=== PATIENT | male | born 1985 | race Caucasian/White ===

== ENCOUNTER 2025-01-21 16:28 | Emergency (ER) | payer OTHER, SELFPAY ==
--- OUTSIDE RECORDS SUMMARY | 2024-05-25 03:00 | XMS_ITS | Encounter Summary ---
Author Name [facility] ([facility] Organization [facility] Address [address] [place] [id number] Care Team Providers Care Applied Psychology Chair Name Role Phone THELMAJALEESA GREGORY Primary Care Provider Unavailgayle e Insurance Providers: All historical and current Section Date Range: From patient's date of to the date document was created. This section includes the names of all active insurance providers for the patient. Insurance Provider Type of Coverage Plan Name Start of Policy Coverage End of Policy Coverage Group Number Member ID Insurance Provider's Telephone Number Policy Craig's Name Patient's Relationship to Policy Craig [employer] November 01, 2021 [id number] [place] TURNER PATIENT [employer] RX PRESCRIPT ION RX PLAN November 01, 2021 [id number] [phone] MASON TURNER PATIENT Selected Encounter This section includes the information on record at MD for the Encounter. Date/Time Encounter Type Encounter Description Reason Provider Source May 25, 2024 08:00 AM PT EDUCATION NOC GROUP SLEEP MEDICINE ICD-10-CM G47.33 Obstructive sleep apnea (adult) (pediatric) ALISIA CHAVIS Tanvir Encounter Template Text not used by MD Assessments - Encounter Diagnoses This section includes the primary and secondary diagnoses documented for the Encounter. Date/Time Primary/Secondary Diagnosis Diagnosis Name Provider Source Jun 14, 2024 01:28 PM PRIMARY Obstructive sleep apnea (adult) (pediatric) ALISIA CHAVIS [facility] Plan of Treatment: Future Appointments (+ 6 months) and Future Tests (+/- 45 days) The Plan of Treatment section includes future care activities for the patient from all [place] treatmentfacilities. This section includes future appointments and future orders which are active, pending or scheduled. Future Appointments This section includes appointments that were scheduled to occur 6 months from the date of the Encounter, up to a maximum of 20 appointments. The data comes from all MD treatment facilities. Appointment Date/Time Appointment Type Appointme nt Facility Name Jun 18, 2024 11:00 AM AMBULATORY - MEDICINE [facility] Aug 14, 2024 06:30 AM AMBULATORY - NONE [facility] Lab Results: +/- 30 days of the encounter This section includes the Chemistry and Hematology Lab Results on record with MD for the patient. Radiology Reports and Pathology Reports are provided separately, in subsequent sections. Lab Results This section contains the Chemistry/Hematology Results that were resulted 30 days before or 30 daysafter the date of the Encounter. Date/Time Source Result Type Result - Unit Interpretation Reference Range Specimen Type Comment May 18, 2024 07:58 AM [facility] TSH W/REFLEX TO FREE T4 PLASMA Specimen Type: PLASMA No comment entered. Ordering Provider: JALEESA RENEE Report Released Date/Time: May 08, 2024 11:40 AM Reporting Lab: [facility] [id number] Performing Lab: [facility] [phone] TSH 3.54 u[IU]/mL 0.35-4.94 May 18, 2024 07:58 AM [facility] HIV AG/AB SCREEN SERUM Specimen Ty pe: SERUM No comment entered. Ordering Provider: JALEESA RENEE Report Released Date/Time: May 08, 2024 11:40 AM Reporting Lab: [facility] [phone] Performing Lab: [facility] [phone] HIV AG/AB SCREEN NEGATIVE NEGATIVE May 18, 2024 07:58 AM [facility] ANTI-HEP C(EIA) SERUM Specimen Typ e: SERUM No comment entered. Ordering Provider: JALEESA RENEE Report Released Date/Time: May 08, 2024 11:40 AM Reporting Lab: [facility] [phone] Performing Lab: [facility] [phone] ANTI-HEP C(EIA) NEGATIVE NEGATIVE May 18, 2024 07:58 AM [facility] LIPID PANEL,NON-FASTING PLASMA Spec imen Type: PLASMA No comment entered. Ordering Provider: JALEESA RENEE Report Released Date/Time: May 08, 2024 11:40 AM Reporting Lab: [facility] [phone] Performing Lab: [facility] [phone] CHOLESTEROL 213 mg/dL H <199 .HDL 50 mg/dL >40 LDL CALCULATION 137 mg/dL H <99 VLDL CALCULATION 26 mg/dL <29 NON HDL CHOLESTEROL 163 mg/dL H <129 TRIG(NON FASTING) 130 mg/dL <149 May 18, 2024 07:58 AM [facility] COMPREHENSIVE METABOLIC PANEL+MG PLASMA Specimen Type: PLASMA No comment entered. Ordering Provider: JALEESA RENEE Report Released Date/Time: May 08, 2024 11:40 AM Reporting Lab: [facility] [phone] Performing Lab: [facility] [phone] CREATININE 1.0 mg/dL 0.7-1.2 UREA NITROGEN 13 mg/dL 8-26 GLUCOSE 92 mg/dL 70-100 SODIUM 139 mmol/L 136-145 POTASSIUM 4.5 mmol/L 3.5-5.1 CHLORIDE 107 mmol/L 98-107 CO2 26 mmol/L 22-29 CALCIUM 9.6 mg/dL 8.4-10.2 PROTEIN,TOTAL 7.5 g/dL 6.4-8.3 ALBUMIN 4.8 g/dL 3.5-5.0 BILIRUBIN, TOTAL 1.3 mg/dL H 0.2-1.2 MAGNESIUM 2.2 mg/dL 1.6-2.6 ANION GAP 6 mmol/L 5-15 ALKALINE PHOSPHATASE 67 U/L 40-150 ALT/SGPT 65 U/L H <44 AST/SGOT 42 U/L H 11-34 .CREAT EGFR(CKD-EPI) >90 >60 DIR. BILIRUBIN 0.4 mg/dL <0.5 May 18, 2024 07:58 AM [facility] HEMOGLOBIN A1C BLOOD Specimen Type: BLOOD Comment: Values obtained from A1C measurements can vary. For typical A1C assays, a reported value of 7.0 could actually be between 6.7 and 7.3 if measured by a reference method. A reported value of 9.0 could actually be between 8.7 and 9.3. Ref: http://www.ngsp.org/CAPdata.asp Ordering Provider: JALEESA RENEE Report Released Date/Time: May 08, 2024 11:40 AM Reporting Lab: [facility] [phone] Performing Lab: [facility] [phone] HEMOGLOBIN A1C 5.2 4.0-6.0 May 18, 2024 07:58 AM [facility] TESTOSTERONE SERUM Specimen Type : SERUM No comment entered. Ordering Provider: JALEESA RENEE Report Released Date/Time: May 08, 2024 11:43 AM Reporting Lab: [facility] [phone] Performing Lab: [facility] [phone] TESTOSTERONE 355 ng/dL 221-870 Social History: Smoking Status (Most current) and Tobacco Use (All prior to encounter date) This section includes the most current, and the historical, smoking and tobacco- related health factors from the [facility] where the Encounter took place. Current Smoking Status This section includes the most current smoking, or tobacco-related health factor, from the [place] facility where the Encounter took place. Date/Time Current Smoking Status Comment Ned ortiz May 08, 2024 11:00 AM VA-TOBACCO FORMER USER [facility] Tobacco Use History This section includes a history of the smoking, or tobacco-related health factors, that were collected on or before the date of the Encounter. The data comes from the [facility] where the Encounter took place. Date/Time Smoking Status/Tobacco Use Comment F rodrigo May 08, 2024 11:00 AM VA-TOBACCO QUIT 15 YRS OR MORE [facility] Encounter Notes: All associated encounter notes This section contains the clinical notes associated to the Encounter. Date/Time Encounter Note(s) Provider Source May 25, 2024 03:41 PM SLEEP MEDICINE CON SULT: LOCAL TITLE: SLEEP MEDICINE CONSULT STANDARD TITLE: SLEEP MEDICINE CONSULT DATE OF NOTE: MAY 25, 2024@15:41 ENTRY DATE: MAY 25, 2024@15:41:42 AUTHOR: ALISIA CHAVISER: URGENCY: STATUS: COMPLETED HOME POSITIVE AIRWAY PRESSURE (PAP) PLAN OF CARE/EDUCATION Diagnosis: SRINIVASAN Sleep Study Date: 06/14/20 AHI (Apnea Hypopnea Index): 45.1 02 Jose Alfredo: 76% Reason for visit Newly diagnosed sleep disordered breathing Friendship Sleepiness Scale on Current-PAP Therapy Using the scale: 0=Never, 1=Slight chance of dozing, 2=Moderate chance of dozing, 3=High chance of dozing How often are you likely to doze off in the following situations? 1. Sitting and reading 1 2. Watching TV 2 3. Sitting inactive in a public place 0 4. As a passenger in a car for an hour without a break 0 5. Lying down to rest in the afternoon as circumstances permit 2 6. Sitting and talking to someone 0 7. Sitting quietly after lunch without alcohol 1 8. In a car while stopped for a few minutes in traffic 0 TOTAL: 6 Prescription Date of Prescription: May [employer] Serial Number/Device Number: [id number]/ [id number] Automatic Positive Airway Pressure (APAP) Minimum Pressure 5 cm/H2O Maximum Pressure 15 cm/H2O EPR 1 cm/H2O Mask: dreamwear Full face mask medium VS Dreamwear nasal mask s-m Education IDENTIFIED NEEDS: Review of disease, and correct operation of medical equipment. Reviewed/educated patient regarding acclimation goals, tips and tricks to increase tolerance, compliance goals to include minimum of 4hrs or more 70% of the time (21/30 days) for effective therapy. 30 day acclamation with 90 day compliance goal. PARTICIPANTS: Patient TEACHING STRATEGY: Classroom Number of veterans in attendance: 6 OBJECTIVES: Sleep Apnea education, Clinic education, Equipment maintenance and cleaning, Troubleshooting , Resupply of disposables, Mask fitting and education ASSESSMENT: Verbalizes critical information about the topic Initial order placed for patient to receive supplies through [employer] [facility] Patient entered into remote monitoring program based on their current machine or machine provided. Encouraged patient to enroll in [employer] or [employer] to follow personal usage remotely. Follow-Up Patient gave consent to view PAP data or change settings remotely via wireless modem. Written instructions including equipment use and maintenance as well as phone number for questions/supplies provided with all issued equipment. Patient instructed to call [facility] [phone] with questions or concerns regarding PAP therapy or send [employer] Secure Message to [facility]--C/APAP Clinic. Patient instructed to call [employer] [phone] or visit [place] to re-order PAP supplies. 05/25/24 [phone] [employer] PM PEND.[facility] N/A [id number] 05/25/24 [phone] [employer] PM PEND.[facility] N/A [id number] /es/ ALISIA CHAVIS CARDIOPULMONARY SUPERVISOR Signed: 05/25/2024 15:47 ALISIA CHAVIS [facility]
--- OUTSIDE RECORDS SUMMARY | 2024-06-18 06:00 | XMS_ITS | Encounter Summary ---
Author Name [facility] Organization [facility] ([place]) Address [address] [place] [address] Care Team Providers Care Veterinary Technician Name Role Phone THELMAJALEESA Primary Care Provider Unavailgayle e Insurance Providers: [...] [employer] November 01, 2021 [id number] MASON TURNER PATIENT [employer] RX PRESCRIPT ION RX PLAN November 01, 2021 [id number] [phone] MASON TURNER PATIENT Selected Encounter This section includes the information on record at [place] for the Encounter. Date/Time Encounter Type Encounter Description Reason Provider Source Jun 18, 2024 11:00 AM Outpatient Encounter GENERAL INTERNAL MEDICINE ICD-10-CM Z77.29 Contact with and exposure to other hazardous substances YAIMA SALAS Tanvir Encounter Template Text not used by [place] Assessments - Encounter Diagnoses This section includes the primary and secondary diagnoses documented for the Encounter. Date/Time Primary/Secondary Diagnosis Diagnosis Name Provider Source Jul 06, 2024 11:32 AM PRIMARY Contact with and exposure to other hazardous substances YAIMA SALAS [facility] Jul 06, 2024 11:32 AM SECONDARY Allergic rhinitis, unspecified YAIMA SALAS [facility] Jul 06, 2024 11:32 AM SECONDARY Atopic dermatitis, unspecified YAIMA SALAS [facility] Jul 06, 2024 11:32 AM SECONDARY Contact w and expsr to oth hazard, chiefly nonmed, chemicals DWIGHTYAIMA [facility] Jul 06, 2024 11:32 AM SECONDARY Contact with and (suspected) exposure to asbestos SALASYAIMA [facility] Jul 06, 2024 11:32 AM SECONDARY Contact with and (suspected) exposure to noise SALASYAIMA [facility] Jul 06, 2024 11:32 AM SECONDARY Heartburn YAIMA SALAS [facility] Jul 06, 2024 11:32 AM SECONDARY Male erectile dysfunction, unspecified YAIMA SALAS [facility] Jul 06, 2024 11:32 AM SECONDARY Obesity, unspecified YAIMA SALAS [facility] Jul 06, 2024 11:32 AM SECONDARY Other recurrent depressive disorders YAIMA SALAS [facility] Jul 06, 2024 11:32 AM SECONDARY Sleep apnea, unspecified YAIMA SALAS [facility] Plan of Treatment: Future Appointments (+ 6 months) and Future Tests (+/- 45 days) The Plan of Treatment section includes future care activities for the patient from all [place] treatmentfacilities. This section includes future appointments and future orders which are active, pending or scheduled. Future Appointments This section includes appointments that were scheduled to occur 6 months from the date of the Encounter, up to a maximum of 20 appointments. The data comes from all [place] treatment facilities. Appointment Date/Time Appointment Type Appointme nt Facility Name Aug 14, 2024 06:30 AM AMBULATORY - NONE [facility] Encounter Notes: All associated encounter notes This section contains the clinical notes associated to the Encounter. Date/Time Encounter Note(s) Provider Source Jun 18, 2024 11:24 AM LETTERS: LOCAL TITLE: FOLLOW UP RESULTS LETTER STANDARD TITLE: LETTERS DATE OF NOTE: JUN 18, 2024@11:24 ENTRY DATE: JUN 18, 2024@11:24:43 AUTHOR: YAIMA SALAS COSIGNER: URGENCY: STATUS: COMPLETED [facility] [address] [place] [address] Jun COLBY TURNER [id number] [address] [facility] [id number] Dear Colby: Thank you for completing a Environmental Health Assessment. The following includes the results of diagnostic testing (if applicable) which were completed during your Assessment Evaluation: N/A If you have any additional health concerns and/or treatment needs, please schedule a follow-up appointment with your primary care provider. With environmental exposures, it is important to take care of yourself by eating a healthy diet, exercising regularly, avoiding tobacco and excessive alcohol consumption, and staying current on age-appropriate cancer screenings and vaccinations. I encourage you to view [place]'s Health Outcomes Exposures website at https://www.publichealth.[place].gov /exposures/index.asp for additional information and resources on exposures related to your service. Should you have additional questions, please contact your local [place] Environmental Health Coordinator at the [facility] . Environmental Exposures Assessments, like the one you just completed, are not disability exams. For questions regarding the claims process, please contact your local [facility] Camera Assembler (CVSO) or contact the [facility] Help Desk at: . You may also request a virtual or in-person appt here simply click on the available office, complete the brief form, and they will contact you directly to arrange a time. Additional benefit specific information can be found at: https://www.eb[place]efits.[place].gov/eb enefits. Veterans Crisis Line: 24/01, confidential support for Veterans and their loved ones. You do not need to be enrolled in VA benefits or health care to connect. Dial 988 then Press 1, chat online at: [email or web address]. net/chat or text 840413. Please consider setting up secure messaging through [employer] [email or web address].[email or web address] Thank you for your service. V/R Yaima Salas, QUALITY ASSURANCE AUDITOR- YAIMA SALAS NURSE PRACTITIONER [facility]A SALAS [facility] Jun 18, 2024 10:42 AM ENVIRONMENTAL HEAL TH CONSULT: LOCAL TITLE: TOXIC EXPOSURE SCREENING CONSULT STANDARD TITLE: ENVIRONMENTAL HEALTH CONSULT DATE OF NOTE: JUN 18, 2024@10:42 ENTRY DATE: JUN 18, 2024@10:43:01 AUTHOR: YAIMA SALAS EXP COSIGNER: URGENCY: STATUS: COMPLETED MODULE 1: INTRODUCTION AND TELEHEALTH Chief complaint/ concern(s): 38 y/o white male US[employer] , states he is in overall good health. Wanted to docuemnt his exposures while on the [employer] [place]. Negatigve 10 point ROS except otherwise noted in ROS. PURPOSE OF EXAM: Non-Registry Evaluation, document exposure concerns and discuss implications to health care. Treatment: Veterans with any treatment questions or concerns were encouraged to contact their primary care provider. Disability: Veterans with disability claims or questions were encouraged to contact the [employer] at or online at www.[place].gov/disability. Primary Care name and phone number: [facility] ([phone]) PACT: JAQUAN PACT TERESA *RISSA* (Focus: Primary Care Only) Primary Care Provider: JALEESA RENEE PHONE:[phone] Offline Editor: VICKEY CORBETT PHONE:[phone] Clinical Associate: CHRIS RIOJAS PHONE:[phone] Reforestation Worker: VINNIE PARIS PHONE:[phone] Clinical Pharmacist Practitioner: ANA M AMATO Surrogate Primary Care Provider: YAIMA QUARLES PHONE:[phone] PAGER:[phone] Clinical POC: Administrative POC: Appointment was a Telehealth CVT/VVC visit. VVC appointment information: C - Consent: The [place] was notified of the right to decline telehealth services and the availability of other options. The consented to be seen via CVT/VVC. A - Address: Obtained or verified Renfrew's address for this appointment. Patient location during visit: Home [address], [place] [address] P - Phone Numbers: - If e911 service is not available, get local police, exchange engineer or other emergency contact numbers from the [place]rew. If Ren[place]rew does not know contact emergency contact numbers, you will need to use Emergency Call Relay Center at [phone]. - The Renfrew confirms the location is safe and private for the visit. - Others are not in the home or local area who may be contacted in an urgent situation Others present at this appointment with the Renfrew's consent (caregiver, family member, etc.) S - Surveyed the environment and identified all participants in room. L - Locked the virtual medical room for the encounter. EMERGENCY PLAN In the event of an emergency, the or family may call emergency services, if capable. The telehealth clinician will remain in the virtual medical room until emergency response arrives and handoff to emergency services is complete. If the [place]rew is unable to make an emergency call, the telehealth clinician should follow the process outlined in the CAPS LOCK section. VETERANS CRISIS LINE: press 1 or 988 and press 1. [facility] Help Desk ([facility]): [phone] Verified telehealth clinician's contact information for this appointment: Yaima Salas, [facility] [phone] MODULE 2: HISTORY AND EXPOSURE ASSESSMENT /Deployment history reviewed and discussed with Renfrew: Deployment history reviewed in Individual Longitudinal Exposure Record (ILER). Details: No deployments Deployment history reviewed in [employer] (ColorChip). Details: reviwed Deployment history verbally reviewed with . 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 Was wearing leather gloves most of the time. During training there was more PPE provided. Asbestos. Details: used asbestos gaskets with steam valves. Does not recall using PPE when handling these gaskets. CARC (Chemical Agent Resistance Compound) paint. Details: unknown Fuels. 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 Industrial solvents. Details: Used a lot to include water treatment chemicals, lubricants, etc. Lead. Details: unknown Radiation. 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 Noise and anthrax vaccine. MODULE 3: COMBINED HPI AND ROS Reviewed pre-encounter nursing documentation from May. Details: Combined HPI and ROS. Head, Ears, Eyes, Nose, and Throat (HEENT): Details: allergic rhinits sx's, started during service and got worse after the [place] [employer]. Respiratory: Details: Dx with SRINIVASAN, some wheezing with seasonal allergy flares. Used to do power lifting. After two surgeries and a torn bicep now does light weights. States he is out of shape. So does not think he could run a mile without stopping to catch his breath but thinks he could get into running shape if he wanted to. Cardiac: Details: denies Gastrointestinal: Details: Heartburn a few times/week. Will take Tums and that works. Denies any changes in bowel patterns. Dermatological: Details: atopic dermatitis on face and arms which started in the [place] [employer]. Some topicals work briefly but it always comes back per . Neurological: Details: denies Musculoskeletal: Details: b/l shoulder pain Endocrine: Details: obesity MODULE 4: ALLERGIES/MEDICATIONS/PROBLEM LIST/PAST MEDICAL HISTORY Allergies reviewed in CPRS. Comment: NKDA. Seasonal allergies Active Medications: Active Outpatient Medications (including Supplies): Non-VA MULTIVITAMINS TAB 3 TABLETS MOUTH EVERY DAY ACTIVE Medication list reviewed in CPRS. NOTE: This list does not reflect any updates made to the problem list during today's appointment. Please refer to the assessment section in module 7 for additional diagnoses. [facility] Problem List is the source for the following: Active Problem List: 6 Active Problems PROBLEM LAST MOD PROVIDER Obesity 05/08/2024 THELMA,JALEESA Roblero Obstructive sleep apnea syndrome 05/08/2024 THELMA,JALEESA Roblero Fatigue 05/08/2024 THELMA,JALEESA Roblero Lack of libido 05/08/2024 THELMA,JALEESA Roblero Erectile dysfunction 05/08/2024 THELMA,JALEESA Roblero Exposure to potentially hazardous substance 05/09/2024 YAIMA SALAS AFFPaula and asbestos MODULE 5: SOCIAL/FAMILY HISTORY Social History: Substances: Cigarettes Yes Details: 2 years or less 20 years ago socially, a few cigs per day Cigars No Electronic nicotine products such as e-cigarettes and vape pens. No Smokeless tobacco such as chew, dip, and snuff. No Marijuana, including tetrahydrocannabinol (THC) and cannabidiol (CBD) products. 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 Environmental: Details: denies Family history Autoimmune conditions: Details: denies defects in biological children after deployment: Details: 2 children, no infertility or BDs. Cancers: Details: Mother had Lung and Bladder CA, she is living. Lung conditions: Details: both his children have asthma MODULE 6: PHYSICAL EXAM/ RECORDS REVIEW/ DIAGNOSTIC TESTS A previous physical exam of record was reviewed. Date of previous exam: 05-08-2024 Evaluation was completed via Telehealth and physical exam was not performed. MODULE 7: ASSESSMENT AND PLAN EXPOSURE/S: Contact/Suspected Exposure to Asbestos Add to Problem List Contact/Suspected Exposure to Noise Add to Problem List Contact/Suspected Exposure to Other Hazardous Chemicals Add to Problem List Contact/Suspected Exposure to Other Hazardous Substances Add to Problem List HEENT: Allergic Rhinitis, Unspecified Add to Problem List RESPIRATORY: Obstructive Sleep Apnea Add to Problem List GI: Heartburn Add to Problem List /DATA CENTER ENGINEER: Male Erectile Dysfunction, Unspecified ENDOCRINE: Obesity, Unspecified DERM: Atopic Dermatitis Unspecified Add to Problem List PSYCH: Other Recurrent Depressive Disorders Add to Problem List Exposure Assessment Summary/Plan: advised to continue to see [place] PCP annualy and as needed. No diagnostics or labs required today. was advised on preventive health measures to include eating a healthy diet, exercising regularly, avoiding tobacco and excessive alcohol consumption, and staying current on age-appropriate cancer screenings and vaccinations. was advised to follow up with their primary care provider for treatment needs and/or further evaluation as indicated. was made aware of educational resources that include information on VSO/VBA. Exposure fact sheet was provided. /es/ YAIMA SALAS NURSE PRACTITIONER Signed: 06/18/2024 11:24 YAIMA SALAS [facility]
--- OUTSIDE RECORDS SUMMARY | 2025-01-21 16:30 | XMS_ITS | Continuity of Care Document ---
Author Name [facility] Organization 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 Unavailable Unavailable Problems Combined list of problems from Department of Defense and Veterans Affairs facilities. It does not include entries that were removed or entered in error. Problem Status Onset Date Problem Type Date of Resolution Comments Source ALCOHOL DEPENDENCE (ALCOHOLISM) Active Condition [facility] Allergic Rhinitis, unspecified Active Condition [facility] Atopic Dermatitis, unspecified Active Condition [facility] Contact with and (Suspected) Exposure to Asbestos Active Condition [facility] Contact with and (Suspected) Exposure to Noise Active Condition [facility] Contact with and (suspected) exposure to other hazardous substances Active Condition [facility] Contact with and (Suspected) Exposure to other Hazardous, Chiefly Nonmedicinal, Active Condition [facility] Erectile dysfunction Active Condition [facility] Exposure to potentially hazardous substance Active Condition May 09, 2024 Entered By: LEXY SALAS Comment: AFFF and asbestos [facility] family history Active Condition Jun 032023 Entered By: JALEESA RENEE Comment: Mom: prior hx of strokes, hx of anorexia, headaches, hx cancer (bladder and lung, dx 3 years ago in 60s)Jun 18, 2024 Entered By: JALEESA RENEE Comment: Dad: heart disease, in upper 60s, CAD with stents, smoker, DM2Dec 2023 Entered By: JALEESA RENEE Comment: Twins 12 years old: boy (heart murmur), girl twins, 13 year old boyDec 2023 Entered By: JALEESA RENEE Comment: Both parents are adopted so limited family hx [facility] Fatigue Active Condition [facility] Heartburn Active Condition [facility] History of surgery Active Condition Jun 18, 2024 Entered By: JALEESA RENEE Comment: distal clavicle incisions bilateral, shoulder surgery (> 10 years)Jun 18, 2024 Entered By: JALEESA RENEE Comment: appendectomy (~ 2012)Jun 18, 2024 Entered By: JALEESA RENEE Comment: hernia repair as a childDe 2023 Entered By: JALEESA RENEE Comment: bicep tear repair LeftDe 2023 Entered By: JALEESA RENEE Comment: Hx of 2 colonoscopies - first in 2010 with one polyp removed (rec'd 5 yearfollow up), last in 2016 (clear). Rec'd 10 year follow up (due 2025). Completed at [facility] in [place]. [facility] Lack of libido Active Condition [facility] Obesity Active Condition [facility] Obstructive sleep apnea Active Condition [facility] Other Recurrent Depressive Disorders Active Condition [facility] Sleep Apnea, unspecified Active Condition [facility] Social history baseline finding Active Condition Jun 18, 2024 Entered By: JALEESA RENEE Comment: Tobacco: no current cigarette use, prior cigarette us (in early 20s), no chewDe 2023 Entered By: JALEESA RENEE [facility] Entered By: JALEESA RENEE Comment: No illicit substance useD 2023 Entered By: JALEESA RENEE Comment: 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 [employer] Entered By: JALEESA RENEE Comment: Exercise: limited [facility] Diagnosis: ICD-10-CM Z77.29 Contact with and exposure to other hazardous substances Active Diagnosis [facility] Diagnosis: ICD-10-CM G47.33 Obstructive sleep apnea (adult) (pediatric) Active Diagnosis [facility] Diagnosis: ICD-10-CM Z00.00 Encntr for general adult medical exam w/o abnormal findings Active Diagnosis [facility] Medications Combined list of outpatient medications from Department of Defense and Veterans Affairs facilities.Medications provided include 1) outpatient medications from the last 15 months, and 2) patient-reported medications. Medication Details Route Status Patient Instructions Prescription Expires Prescription Number Last Dispense Date Ordering Provider Order Date Order Qty Source MULTIVITAMI NS TAB TAKE THREE TABLETS BY MOUTH EVERY DAY ORAL ACTIVE JALEESA RENEE 2023 [facility] Allergies, Adverse Reactions, Alerts Combined list of allergies from Department of Defense and Veterans Affairs facilities. It does not include entries that were removed or entered in error. Substance Category Reaction Severity Reaction type Status Date Reported Comments Source SEASONAL ALLERGIES Propensity to adverse reaction (finding) Nasal discharge , Red eye MILD active 4 [facility] Immunizations Combined list of available immunizations from the Department of Defense and Veterans Affairs facilities. Immunization Series Date Given Administered By Site Reaction Lot Number CVX Code Drug Makeup Editor Status Comments Source TDAP 2023 BEULAHCHRIS J LEFT DELTO ID [id number] 115 complet ed Booster for Series, ADMINISTE RED AT [place], [facility] INFLUENZA, SPLIT VIRUS, QUADRIVALENT, PRESERVATIVE 2022 158 complet ed HISTORICA L INFORMATI ON - FROM OTHER REGISTRY, [facility] INFLUENZA, SPLIT VIRUS, QUADRIVALENT, PRESERVATIVE 2021 158 complet ed HISTORICA L INFORMATI ON - FROM OTHER REGISTRY, [facility] INFLUENZA, MDCK, QUADRIVALENT, PF 2018 171 complet ed HISTORICA L INFORMATI ON - FROM OTHER REGISTRY, [facility] influenza virus vaccine, split virus (incl. purified surface antigen)-reti red CODE 0 2005 [id number] Other (OTH) complet ed influenza virus vaccine, split virus (incl. purified surface antigen)- retired CODE DoD typhoid vaccine, parenteral, other than acetone-kille d, dried 0 2005 UNKNOWN 41 Unknown (UNK) comple t ed typhoid vaccine, parentera l, other than acetone-k illed, dried DoD hepatitis B vaccine, adult dosage 3 2004 UNKNOWN 43 Unknown (UNK) comple t ed hepatitis B vaccine, adult dosage DoD hepatitis A vaccine, adult dosage 2 2004 UNKNOWN 52 Other (OTH) complet ed hepatitis A vaccine, adult dosage DoD vaccinia (smallpox) vaccine 0 2004 [id number] Wyeth-Ayersgisela (WAL) complet ed vaccinia (smallpox ) vaccine DoD typhoid vaccine, parenteral, other than acetone-kille d, dried 0 2002 UNKNOWN 41 Unknown (UNK) comple t ed typhoid vaccine, parentera l, other than acetone-k illed, dried DoD yellow fever vaccine 0 2002 UNKNOWN 37 Unknown (UNK) comple t ed yellow fever vaccine DoD hepatitis B vaccine, adult dosage 2 2002 UNKNOWN 43 Unknown (UNK) comple t ed hepatitis B vaccine, adult dosage DoD measles, mumps and rubella virus vaccine 1 2002 UNKNOWN 03 Unknown (UNK) comple t ed measles, mumps and rubella virus vaccine DoD tetanus and diphtheria toxoids, adsorbed, preservative free, for adult use (2 Lf of tetanus toxoid and 2 Lf of diphtheria toxoid) 0 2002 UNKNOWN 09 Unknown (UNK) comple t ed tetanus and diphtheri a toxoids, adsorbed, preservat macho free, for adult use (2 Lf of tetanus toxoid and 2 Lf of diphtheri a toxoid) DoD poliovirus vaccine, inactivated 1 2002 UNKNOWN 10 Unknown (UNK) comple t ed polioviru s vaccine, inactivat ed DoD hepatitis A vaccine, adult dosage 1 2002 UNKNOWN 52 Unknown (UNK) comple t ed hepatitis A vaccine, adult dosage DoD DTAP 1984 20 complet ed HISTORICA L INFORMATI ON - FROM OTHER REGISTRY, [facility] POLIO, UNSPECIFIED FORMULATION 1984 89 complet ed HISTORICA L INFORMATI ON - FROM OTHER REGISTRY, [facility] Results Combined list of recent chemistry, hematology and other laboratory results from Department of Defense and Veterans Affairs, ranging from 15 months to all on record, depending upon the facility. Order Name Results Value Reference Range Date Interpretation Specimen Comments Source LIVER FUNCTION TESTS BILIRUBIN. TOTAL [MASS/VOLU ME] IN SERUM OR PLASMA 1.5 mg/dL 0.2 - 1.2 08/14 H Specimen Type: PLASMA No comment entered. Ordering Provider: JALEESA RENEE Report Released Date/Time: May 18, 2024 11:34 AM Reporting Lab: [facility] [address] Performing Lab: [facility] [address] [place] [facility] LIVER FUNCTION TESTS ALKALINE PHOSPHATAS E [ENZYMATIC ACTIVITY/V OLUME] IN SERUM OR PLASMA 58 U/L 40 - 150 08/14 Specimen Type: PLASMA No comment entered. Ordering Provider: JALEESA RENEE Report Released Date/Time: May 18, 2024 11:34 AM Reporting Lab: [facility] [address] Performing Lab: [facility] [address] [place] [facility] LIVER FUNCTION TESTS ALANINE AMINOTRANS FERASE [ENZYMATIC ACTIVITY/V OLUME] IN SERUM OR PLASMA 47 U/L <44 - 44 08/14 H Specimen Type: PLASMA No comment entered. Ordering Provider: JALEESA RENEE Report Released Date/Time: May 18, 2024 11:34 AM Reporting Lab: [facility] [address] Performing Lab: [facility] [address] [place] [facility] LIVER FUNCTION TESTS ASPARTATE AMINOTRANS FERASE [ENZYMATIC ACTIVITY/V OLUME] IN SERUM OR PLASMA 30 U/L 11 - 08/14 Specimen Type: PLASMA No comment entered. Ordering Provider: JALEESA RENEE Report Released Date/Time: May 18, 2024 11:34 AM Reporting Lab: [facility] [address] Performing Lab: [facility] [address] [place] [facility] LIVER FUNCTION TESTS GAMMA GLUTAMYL TRANSFERAS E [ENZYMATIC ACTIVITY/V OLUME] IN SERUM OR PLASMA 87 U/L <54 - 54 08/14 H Specimen Type: PLASMA No comment entered. Ordering Provider: JALEESA RENEE Report Released Date/Time: May 18, 2024 11:34 AM Reporting Lab: [facility] [address] Performing Lab: [facility] [address] [place] [facility] LIVER FUNCTION TESTS BILIRUBIN. DIRECT [MASS/VOLU ME] IN SERUM OR PLASMA 0.4 mg/dL <0.5 - 0.5 08/14 Specimen Type: PLASMA No comment entered. Ordering Provider: JALEESA RENEE Report Released Date/Time: May 18, 2024 11:34 AM Reporting Lab: [facility] [address] Performing Lab: [facility] [address] [place] [facility] ANTI-HEP C(EIA) HEPATITIS C VIRUS AB [PRESENCE] IN SERUM NEGATIVE 05/18 Specimen Type: SERUM No comment entered. Ordering Provider: JALEESA RENEE Report Released Date/Time: May 08, 2024 11:40 AM Reporting Lab: [facility] [address] Performing Lab: [facility] [address] [place] [facility] COMPREHE NSIVE METABOLI C PANEL+MG CREATININE [MASS/VOLU ME] IN SERUM OR PLASMA 1.0 mg/dL 0.7 - 1.2 05/18 Specimen Type: PLASMA No comment entered. Ordering Provider: JALEESA RENEE Report Released Date/Time: May 08, 2024 11:40 AM Reporting Lab: [facility] [address] Performing Lab: [facility] [address] [place] [facility] COMPREHE NSIVE METABOLI C PANEL+MG UREA NITROGEN [MASS/VOLU ME] IN SERUM OR PLASMA 13 mg/dL 8 - 26 05/18 Specimen Type: PLASMA No comment entered. Ordering Provider: JALEESA RENEE Report Released Date/Time: May 08, 2024 11:40 AM Reporting Lab: [facility] [address] Performing Lab: [facility] [address] [place] [facility] COMPREHE NSIVE METABOLI C PANEL+MG GLUCOSE [MASS/VOLU ME] IN SERUM OR PLASMA 92 mg/dL 70 - 100 05/18 Specimen Type: PLASMA No comment entered. Ordering Provider: JALEESA RENEE Report Released Date/Time: May 08, 2024 11:40 AM Reporting Lab: [facility] [address] Performing Lab: [facility] [address] [place] [facility] COMPREHE NSIVE METABOLI C PANEL+MG SODIUM [MOLES/VOL UME] IN SERUM OR PLASMA 139 mmol/L 136 - 145 05/18 Specimen Type: PLASMA No comment entered. Ordering Provider: JALEESA RENEE Report Released Date/Time: May 08, 2024 11:40 AM Reporting Lab: [facility] [address] Performing Lab: [facility] [address] [place] [facility] COMPREHE NSIVE METABOLI C PANEL+MG POTASSIUM [MOLES/VOL UME] IN SERUM OR PLASMA 4.5 mmol/L 3.5 - 5.1 05/18 Specimen Type: PLASMA No comment entered. Ordering Provider: JALEESA RENEE Report Released Date/Time: May 08, 2024 11:40 AM Reporting Lab: [facility] [address] Performing Lab: [facility] [address] [place] [facility] COMPREHE NSIVE METABOLI C PANEL+MG CHLORIDE [MOLES/VOL UME] IN SERUM OR PLASMA 107 mmol/L 98 - 107 05/18 Specimen Type: PLASMA No comment entered. Ordering Provider: JALEESA RENEE Report Released Date/Time: May 08, 2024 11:40 AM Reporting Lab: [facility] [address] Performing Lab: [facility] [address] [place] [facility] COMPREHE NSIVE METABOLI C PANEL+MG CARBON DIOXIDE, TOTAL [MOLES/VOL UME] IN SERUM OR PLASMA 26 mmol/L 22 - 29 05/18 Specimen Type: PLASMA No comment entered. Ordering Provider: JALEESA RENEE Report Released Date/Time: May 08, 2024 11:40 AM Reporting Lab: [facility] [address] Performing Lab: [facility] [address] [place] [facility] COMPREHE NSIVE METABOLI C PANEL+MG CALCIUM [MASS/VOLU ME] IN SERUM OR PLASMA 9.6 mg/dL 8.4 - 10.2 05/18 Specimen Type: PLASMA No comment entered. Ordering Provider: JALEESA RENEE Report Released Date/Time: May 08, 2024 11:40 AM Reporting Lab: [facility] [address] Performing Lab: [facility] [address] [place] [facility] COMPREHE NSIVE METABOLI C PANEL+MG PROTEIN [MASS/VOLU ME] IN SERUM OR PLASMA 7.5 g/dL 6.4 - 8.3 05/18 Specimen Type: PLASMA No comment entered. Ordering Provider: JALEESA RENEE Report Released Date/Time: May 08, 2024 11:40 AM Reporting Lab: [facility] [address] Performing Lab: [facility] [address] [place] [facility] COMPREHE NSIVE METABOLI C PANEL+MG ALBUMIN [MASS/VOLU ME] IN SERUM OR PLASMA 4.8 g/dL 3.5 - 5.0 05/18 Specimen Type: PLASMA No comment entered. Ordering Provider: JALEESA RENEE Report Released Date/Time: May 08, 2024 11:40 AM Reporting Lab: [facility] [address] Performing Lab: [facility] [address] [place] [facility] COMPREHE NSIVE METABOLI C PANEL+MG BILIRUBIN. TOTAL [MASS/VOLU ME] IN SERUM OR PLASMA 1.3 mg/dL 0.2 - 1.2 05/18 H Specimen Type: PLASMA No comment entered. Ordering Provider: JALEESA RENEE Report Released Date/Time: May 08, 2024 11:40 AM Reporting Lab: [facility] [address] Performing Lab: [facility] [address] [place] [facility] COMPREHE NSIVE METABOLI C PANEL+MG MAGNESIUM [MASS/VOLU ME] IN SERUM OR PLASMA 2.2 mg/dL 1.6 - 2.6 05/18 Specimen Type: PLASMA No comment entered. Ordering Provider: JALEESA RENEE Report Released Date/Time: May 08, 2024 11:40 AM Reporting Lab: [facility] [address] Performing Lab: [facility] [address] [place] [facility] COMPREHE NSIVE METABOLI C PANEL+MG ANION GAP IN SERUM OR PLASMA 6 mmol/L 5 - 15 05/18 Specimen Type: PLASMA No comment entered. Ordering Provider: JALEESA RENEE Report Released Date/Time: May 08, 2024 11:40 AM Reporting Lab: [facility] [address] Performing Lab: [facility] [address] [place] [facility] COMPREHE NSIVE METABOLI C PANEL+MG ALKALINE PHOSPHATAS E [ENZYMATIC ACTIVITY/V OLUME] IN SERUM OR PLASMA 67 U/L 40 - 150 05/18 Specimen Type: PLASMA No comment entered. Ordering Provider: JALEESA RENEE Report Released Date/Time: May 08, 2024 11:40 AM Reporting Lab: [facility] [address] Performing Lab: [facility] [address] [place] [facility] COMPREHE NSIVE METABOLI C PANEL+MG ALANINE AMINOTRANS FERASE [ENZYMATIC ACTIVITY/V OLUME] IN SERUM OR PLASMA 65 U/L <44 - 44 05/18 H Specimen Type: PLASMA No comment entered. Ordering Provider: JALEESA RENEE Report Released Date/Time: May 08, 2024 11:40 AM Reporting Lab: [facility] [address] Performing Lab: [facility] [address] [facility] COMPREHE NSIVE METABOLI C PANEL+MG ASPARTATE AMINOTRANS FERASE [ENZYMATIC ACTIVITY/V OLUME] IN SERUM OR PLASMA 42 U/L 11 - 34 05/18 H Specimen Type: PLASMA No comment entered. Ordering Provider: JALEESA RENEE Report Released Date/Time: May 08, 2024 11:40 AM Reporting Lab: [facility] [address] Performing Lab: [facility] [address] [facility] COMPREHE NSIVE METABOLI C PANEL+MG GLOMERULAR FILTRATION RATE/1.73 SQ M.PREDICTE D [VOLUME RATE/AREA] IN SERUM, PLASMA OR BLOOD BY CREATININE -BASED FORMULA (CKD-EPI 2020) >90 60 05/18 Specimen Type: PLASMA No comment entered. Ordering Provider: JALEESA RENEE Report Released Date/Time: May 08, 2024 11:40 AM Reporting Lab: [facility] [address] Performing Lab: [facility] [address] [facility] COMPREHE NSIVE METABOLI C PANEL+MG BILIRUBIN. DIRECT [MASS/VOLU ME] IN SERUM OR PLASMA 0.4 mg/dL <0.5 - 0.5 05/18 Specimen Type: PLASMA No comment entered. Ordering Provider: JALEESA RENEE Report Released Date/Time: May 08, 2024 11:40 AM Reporting Lab: [facility] [address] Performing Lab: [facility] [address] [place] [facility] HEMOGLOB IN A1C HEMOGLOBIN A1C/HEMOGL OBIN.TOTAL IN BLOOD 5.2 4.0 - 6.0 05/18 Specimen Type: BLOOD Comment: Values obtained from A1C measurement s can vary. For typical A1C assays, a reported value of 7.0 could actually be between 6.7 and 7.3 if measured by a reference method. A reported value of 9.0 could actually be between 8.7 and 9.3. Ref: http://www. ngsp.org/[place] Pdata.asp Ordering Provider: JALEESA RENEE Report Released Date/Time: May 08, 2024 11:40 AM Reporting Lab: [facility] [address] Performing Lab: [facility] [address] [place] [facility] HIV AG/AB SCREEN HIV 1+2 AB+HIV1 P24 AG [PRESENCE] IN SERUM OR PLASMA BY IMMUNOASSA Y NEGATIVE 05/18 Specimen Type: SERUM No comment entered. Ordering Provider: JALEESA RENEE Report Released Date/Time: May 08, 2024 11:40 AM Reporting Lab: [facility] [address] Performing Lab: [facility] [address] [place] [facility] LIPID PANEL,NO N-FASTIN G CHOLESTERO L [MASS/VOLU ME] IN SERUM OR PLASMA 213 mg/dL <199 - 199 05/18 H Specimen Type: PLASMA No comment entered. Ordering Provider: JALEESA RENEE Report Released Date/Time: May 08, 2024 11:40 AM Reporting Lab: [facility] [address] Performing Lab: [facility] [address] [place] [facility] LIPID PANEL,NO N-FASTIN G CHOLESTERO L IN HDL [MASS/VOLU ME] IN SERUM OR PLASMA 50 mg/dL 40 05/18 Specimen Type: PLASMA No comment entered. Ordering Provider: JALEESA RENEE Report Released Date/Time: May 08, 2024 11:40 AM Reporting Lab: [facility] [address] Performing Lab: [facility] [address] [place] [facility] LIPID PANEL,NO N-FASTIN G CHOLESTERO L IN LDL [MASS/VOLU ME] IN SERUM OR PLASMA BY CALCULATIO N 137 mg/dL <99 - 99 05/18 H Specimen Type: PLASMA No comment entered. Ordering Provider: JALEESA RENEE Report Released Date/Time: May 08, 2024 11:40 AM Reporting Lab: [facility] [address] Performing Lab: [facility] [address] [place] [facility] LIPID PANEL,NO N-FASTIN G CHOLESTERO L IN VLDL [MASS/VOLU ME] IN SERUM OR PLASMA BY CALCULATIO N 26 mg/dL <29 - 29 05/18 Specimen Type: PLASMA No comment entered. Ordering Provider: JALEESA RENEE Report Released Date/Time: May 08, 2024 11:40 AM Reporting Lab: [facility] [address] Performing Lab: [facility] [address] [place] [facility] LIPID PANEL,NO N-FASTIN G CHOLESTERO L NON HDL [MASS/VOLU ME] IN SERUM OR PLASMA 163 mg/dL <129 - 129 05/18 H Specimen Type: PLASMA No comment entered. Ordering Provider: JALEESA RENEE Report Released Date/Time: May 08, 2024 11:40 AM Reporting Lab: [facility] [address] Performing Lab: [facility] [address] [place] [facility] LIPID PANEL,NO N-FASTIN G TRIGLYCERI DE [MASS/VOLU ME] IN SERUM OR PLASMA 130 mg/dL <149 - 149 05/18 Specimen Type: PLASMA No comment entered. Ordering Provider: JALEESA RENEE Report Released Date/Time: May 08, 2024 11:40 AM Reporting Lab: [facility] [address] Performing Lab: [facility] [address] [place] [facility] TSH W/REFLEX TO FREE T4 THYROTROPI N [UNITS/VOL UME] IN SERUM OR PLASMA 3.54 u[IU]/mL 0.35 - 4.94 05/18 Specimen Type: PLASMA No comment entered. Ordering Provider: JALEESA RENEE Report Released Date/Time: May 08, 2024 11:40 AM Reporting Lab: [facility] [address] Performing Lab: [facility] [address] [facility] TESTOSTE ARIADNE GALLEGOS NE [MASS/VOLU ME] IN SERUM OR PLASMA 355 ng/dL 221 - 870 05/18 Specimen Type: SERUM No comment entered. Ordering Provider: JALEESA RENEE Report Released Date/Time: May 08, 2024 11:43 AM Reporting Lab: [facility] [address] Performing Lab: [facility] [address] [facility] Vital Signs Combined list of inpatient and outpatient Vital Signs from Department of Defense and Veterans Affairs, ranging from 12 months to all on record, depending upon the facility. Vital Sign Value Date Comments Source SYSTOLIC BLOOD PRESSURE 140 05/08/2024 11:03:52 [facility] DIASTOLIC BLOOD PRESSURE 99 05/08/2024 11:03:52 [facility] PULSE OXIMETRY 95 05/08/2024 11:03:52 [facility] 290 05/08/2024 11:03:52 [facility] BMI 44 kg/m2 05/08/2024 11:03:52 [facility] PAIN 0 05/08/2024 11:03:52 [facility] HEIGHT 68 05/08/2024 11:03:52 [facility] TEMPERATURE 98.5 05/08/2024 11:03:52 [facility] PULSE 72 05/08/2024 11:03:52 [facility] RESPIRATION 12 05/08/2024 11:03:52 [facility] Encounters Combined list of: 1) Encounters from Department of Veterans Affairs facilities going backup to the last 18 months, not all [place] inpatient encounters are included; 2) Encounters from the Department of Defense facilities going backup to 280 months. Location Location Details Encounter Type Encounter Number Reason For Visit Attending Provider ADM Date DC Date Status Disposition Source [facility] OFFICE O/P EST MOD 30 MIN [id number] Diagnos is: ICD-10- CM Z00.00 Encntr for general adult medical exam w/o abnorma l finding s JALEESA RENEE 05/08 [facility] Outpatient Encounter [id number] CARLYN SALAS 05/09 [facility] [id number] Diagnos is: ICD-10- CM G47.33 Obstruc tive sleep apnea (adult) ([facility]) ASHLEY CHAVIS 05/25 [facility] Outpatient Encounter [id number] SUNIL LOPEZ 06/15 [facility] [place] [facility] Outpatient Encounter [id number] Diagnos is: ICD-10- CM Z77.29 Contact with and exposur e to other hazardo us substan silvina CARLYN SALAS 06/18 [facility] SNELLIN G [facility] Outpatient Encounter [id number] 08/14 [facility] Procedures Combined list of: 1) Procedures from Department of Veterans Affairs facilities going back up to thelast 18 months, not all [place] non-surgical procedures are included; 2) All procedures from the Department of Defense facilities. Procedure Procedure Type Code Date Perfomer Comments Sour e UREA BREATH TEST, C-14 (ISOTOPIC); ANALYSIS 08/26/19 07 [facility] INDIVIDUAL PSYCHOTHERAPY, INSIGHT ORIENTED, BEHAVIOR MODIFYING AND/OR SUPPORTIVE, IN AN OFFICE OR OUTPATIENT FACILITY, APPROXIMATELY 20 TO 30 MINUTES [id number] WITH THE PATIENT 08/25/19 07 [facility] UREA BREATH TEST, C-14 (ISOTOPIC); ANALYSIS 08/24/19 07 [facility] UREA BREATH TEST, C-14 (ISOTOPIC); ANALYSIS 08/23/19 07 [facility] UREA BREATH TEST, C-14 (ISOTOPIC); ANALYSIS 08/22/19 07 [facility] UREA BREATH TEST, C-14 (ISOTOPIC); ANALYSIS 08/21/19 07 [facility] UREA BREATH TEST, C-14 (ISOTOPIC); ANALYSIS 08/20/19 07 [facility] UREA BREATH TEST, C-14 (ISOTOPIC); ANALYSIS 08/19/19 07 [facility] INDIVIDUAL PSYCHOTHERAPY, INSIGHT ORIENTED, BEHAVIOR MODIFYING AND/OR SUPPORTIVE, IN AN OFFICE OR OUTPATIENT FACILITY, APPROXIMATELY 20 TO 30 MINUTES [id number] WITH THE PATIENT 08/18/19 07 [facility] UREA BREATH TEST, C-14 (ISOTOPIC); ANALYSIS 08/17/19 [facility] UREA BREATH TEST, C-14 (ISOTOPIC); ANALYSIS 08/16/19 07 [facility] GROUP PSYCHOTHERAPY (OTHER THAN OF A MULTIPLE-FAMILY GROUP) 08/15/19 07 [facility] UREA BREATH TEST, C-14 (ISOTOPIC); ANALYSIS 08/14/19 07 [facility] UREA BREATH TEST, C-14 (ISOTOPIC); ANALYSIS 08/13/19 07 [facility] PSYCHIATRIC EVALUATION OF HOSPITAL RECORDS, OTHER PSYCHIATRIC REPORTS, PSYCHOMETRIC AND/OR PROJECTIVE TESTS, AND OTHER ACCUMULATED DATA FOR MEDICALDIAGNOSTIC PURPOSES 08/12/19 07 [facility] MEDICAL NUTRITION THERAPY; GROUP (2 OR MORE INDIVIDUAL(S)), EACH 30 MINUTES 08/11/19 07 [facility] UREA BREATH TEST, C-14 (ISOTOPIC); ANALYSIS 08/11/19 07 [facility] UREA BREATH TEST, C-14 (ISOTOPIC); ANALYSIS 08/10/19 07 [facility] PSYCHIATRIC EVALUATION OF HOSPITAL RECORDS, OTHER PSYCHIATRIC REPORTS, PSYCHOMETRIC AND/OR PROJECTIVE TESTS, AND OTHER ACCUMULATED DATA FOR MEDICALDIAGNOSTIC PURPOSES 08/09/19 07 [facility] UREA BREATH TEST, C-14 (ISOTOPIC); ANALYSIS 08/08/19 07 [facility] PRESCRIPTION DRUG, BRAND NAME 05/13/20 03 [facility] PHARMACOLOGIC MANAGEMENT, INCLUDING PRESCRIPTION, USE, AND REVIEW OF MEDICATION WITH NO MORE THAN MINIMAL MEDICAL PSYCHOTHERAPY 03/25/20 03 [facility] Isotop Scans Urea Breath Test, C-14 Analysis Isotop Scans Urea Breath Test, C-14 Analysis [id number] 08/26/19 07 SAVANNA MONTEIRO [facility] Psychiatric Therapy Group (Interview) Psychiatric Therapy Group (Interview) [id number] 08/26/19 07 SAVANNA MONTEIRO [facility] Psychiatric Evaluation Review of Records and Reports Psychiatric Evaluation Review of Records and Reports [id number] 08/26/19 07 SAVANNA MONTEIRO [facility] Psychiatric Therapy Individual Approximately 20-30 Minutes Psychiatric Therapy Individual Approximately 20-30 Minutes [id number] 08/26/19 07 SAVANNA MONTEIRO [facility] Isotop Scans Urea Breath Test, C-14 Analysis Isotop Scans Urea Breath Test, C-14 Analysis [id number] 08/24/19 07 SAVANNA MONTEIRO [facility] Psychiatric Therapy Group (Interview) Psychiatric Therapy Group (Interview) [id number] 08/24/19 07 SAVANNA MONTEIRO [facility] Psychiatric Evaluation Review of Records and Reports Psychiatric Evaluation Review of Records and Reports [id number] 08/24/19 07 SAVANNA MONTEIRO [facility] Isotop Scans Urea Breath Test, C-14 Analysis Isotop Scans Urea Breath Test, C-14 Analysis [id number] 08/23/19 07 SAVANNA MONTEIRO [facility] Psychiatric Therapy Group (Interview) Psychiatric Therapy Group (Interview) 08/23/19 07 SAVANNA MONTEIRO [facility] Psychiatric Therapy Individual Approximately 20-30 Minutes Psychiatric Therapy Individual Approximately 20-30 Minutes [id number] 08/23/19 07 SAVANNA MONTEIRO [facility] Psychiatric Evaluation Review of Records and Reports Psychiatric Evaluation Review of Records and Reports 08/23/19 07 SAVANNA MONTEIRO [facility] Isotop Scans Urea Breath Test, C-14 Analysis Isotop Scans Urea Breath Test, C-14 Analysis [id number] 08/19/19 07 SAVANNA MONTEIRO [facility] Psychiatric Therapy Group (Interview) Psychiatric Therapy Group (Interview) 08/19/19 07 SAVANNA MONTEIRO [facility] Psychiatric Evaluation Review of Records and Reports Psychiatric Evaluation Review of Records and Reports 08/19/19 07 SAVANNA MONTEIRO [facility] Psychiatric Therapy Individual Approximately 20-30 Minutes Psychiatric Therapy Individual Approximately 20-30 Minutes [id number] 08/19/19 07 SAVANNA MONTEIRO [facility] Isotop Scans Urea Breath Test, C-14 Analysis Isotop Scans Urea Breath Test, C-14 Analysis [id number] 08/17/19 07 SAVANNA MONTEIRO [facility] Psychiatric Therapy Group (Interview) Psychiatric Therapy Group (Interview) 08/17/19 07 SAVANNA MONTEIRO [facility] Mental Health Awareness Coping Skills Group Counseling [facility] Psychiatric Evaluation Review of Records and Reports Psychiatric Evaluation Review of Records and Reports [id number] 08/17/19 07 SAVANNA OMNTEIRO [facility] Isotop Scans Urea Breath Test, C-14 Analysis Isotop Scans Urea Breath Test, C-14 Analysis [id number] 08/16/19 07 SAVANNA MONTEIRO [facility] Psychiatric Therapy Group (Interview) Psychiatric Therapy Group (Interview) [id number] 08/16/19 07 SAVANNA MONTEIRO [facility] Terry's Window Grief Group Counseling [facility] Psychiatric Therapy Individual Approximately 20-30 Minutes Psychiatric Therapy Individual Approximately 20-30 Minutes [id number] 08/16/19 07 SAVANNA MONTEIRO [facility] Psychiatric Evaluation Review of Records and Reports Psychiatric Evaluation Review of Records and Reports [id number] 08/16/19 07 SAVANNA MONTEIRO [facility] Psychiatric Therapy Group (Interview) Psychiatric Therapy Group (Interview) [id number] 08/15/19 07 SAVANNA MONTEIRO Commuity Effects of alcohol and the Family Group Counseling [facility] Psychiatric Therapy Individual Approximately 20-30 Minutes Psychiatric Therapy Individual Approximately 20-30 Minutes [id number] 08/15/19 07 SAVANNA MONTEIRO [facility] Psychiatric Evaluation Review of Records and Reports Psychiatric Evaluation Review of Records and Reports [id number] 08/15/19 07 SAVANNA MONTEIRO [facility] Isotop Scans Urea Breath Test, C-14 Analysis Isotop Scans Urea Breath Test, C-14 Analysis [id number] 08/15/19 07 KIRSTEN ALBERTO [facility] Psychiatric Therapy Group (Interview) Psychiatric Therapy Group (Interview) [id number] 08/15/19 07 KIRSTEN ALBERTO [facility] Isotop Scans Urea Breath Test, C-14 Analysis Isotop Scans Urea Breath Test, C-14 Analysis [id number] 08/11/19 07 SAVANNA MONTEIRO [facility] Psychiatric Therapy Group (Interview) Psychiatric Therapy Group (Interview) [id number] 08/11/19 07 SAVANNA MONTEIRO [facility] Social Workshop Spirituality Workshop Nutrition Community Group Session [facility] Psychiatric Evaluation Review of Records and Reports Psychiatric Evaluation Review of Records and Reports [id number] 08/11/19 07 SAVANNA MONTEIRO [facility] Isotop Scans Urea Breath Test, C-14 Analysis Isotop Scans Urea Breath Test, C-14 Analysis [id number] 08/10/19 07 SAVANNA MONTEIRO [facility] Psychiatric Therapy Group (Interview) Psychiatric Therapy Group (Interview) 08/10/19 07 SAVANNA MONTEIRO Denial Workshop, High Risk Workshop, Medical Aspects Workshop, Community Group sessions [facility] Psychiatric Evaluation Review of Records and Reports Psychiatric Evaluation Review of Records and Reports [id number] 08/10/19 07 SAVANNA MONTEIRO [facility] Isotop Scans Urea Breath Test, C-14 Analysis Isotop Scans Urea Breath Test, C-14 Analysis [id number] 08/09/19 07 SHI VILLANUEVA [facility] Psychiatric Therapy Group (Interview) Psychiatric Therapy Group (Interview) [id number] 08/09/19 07 SHI VILLANUEVA [facility] Psychiatric Evaluation Review of Records and Reports Psychiatric Evaluation Review of Records and Reports [id number] 08/09/19 07 SHI VILLANUEVA [facility] Social History Combined list of available smoking, tobacco, and other social history from [facility] of Defense and [facility] facilities. Social History Type Response Date Comment [facility] Tobacco smoking status [facility] [place] VA-TOBACCO FORMER USER 05/08/2024 [facility] History of tobacco use NM-TOBACCO QUIT 1 5 YRS OR MORE 05/08/2024 [facility] This section is an empty social history section. [employer]
--- OUTSIDE RECORDS SUMMARY | 2025-01-21 16:30 | XMS_ITS | Continuity of Care Document ---
Author Name [facility] Organization [facility] Care Team Providers Care Senior Business Intelligence Analyst Name Role Phone [facility] Unavailable Unavailable Problems Combined list of problems from Department of Defense and Veterans Affairs facilities. It does not include entries that were removed or entered in error. Problem Status Onset Date Problem Type Date of Resolution Comments Source Allergic Rhinitis, unspecified Active Condition [facility] Atopic Dermatitis, unspecified Active Condition [facility] Contact with and (Suspected) Exposure to Asbestos Active Condition [facility] Contact with and (Suspected) Exposure to Noise Active Condition [facility] Contact with and (suspected) exposure to other hazardous substances Active Condition [facility] Contact with and (Suspected) Exposure to other Hazardous, Chiefly Nonmedicinal, Active Condition [facility] Erectile dysfunction Active Condition [facility] Exposure to potentially hazardous substance Active Condition May 09, 2024 Entered By: LEXY SALAS Comment: AFFF and asbestos [facility] family history Active Condition Jun 032023 Entered [...] parents are adopted so limited family hx [facility] Fatigue Active Condition [facility] Heartburn Active Condition [facility] History of surgery Active Condition Jun 18, 2024 Entered By: JALEESA RENEE Comment: distal clavicle incisions bilateral, shoulder surgery (> 10 years)Jun 18, 2024 Entered By: JALEESA RENEE Comment: appendectomy (~ 2012)Jun 18, 2024 Entered By: JALEESA RENEE Comment: hernia repair as a childDec 2023 Entered By: JALEESA RENEE Comment: bicep tear repair LeftDe 2023 Entered By: JALEESA RENEE Comment: Hx of 2 colonoscopies - first in 2010 with one polyp removed (rec'd 5 yearfollow up), last in 2016 (clear). Rec'd 10 year follow up (due 2025). Completed at [facility] in [place]. [facility] Lack of libido Active Condition [facility] Obesity Active Condition [facility] Obstructive sleep apnea Active Condition [facility] Other Recurrent Depressive Disorders Active Condition [facility] Sleep Apnea, unspecified Active Condition [facility] Social history baseline finding Active Condition Jun 18, 2024 Entered By: JALEESA RENEE Comment: Tobacco: no current cigarette use, prior cigarette us (in early 20s), [facility] Entered By: JALEESA RENEE Comment: [facility] Entered By: JALEESA RENEE Comment: No illicit substance useD 2023 Entered By: JALEESA RENEE Comment: 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 [employer], [facility] 2023 Entered By: JALEESA RENEE Comment: Exercise: limited [facility] ALCOHOL DEPENDENCE (ALCOHOLISM) Active Condition [facility] Diagnosis: ICD-10-CM Z77.29 Contact with and exposure to other hazardous substances Active Diagnosis [facility] Diagnosis: ICD-10-CM G47.33 Obstructive sleep apnea (adult) (pediatric) Active Diagnosis [facility] Diagnosis: ICD-10-CM Z00.00 Encntr for general adult medical exam w/o abnormal findings Active Diagnosis [facility] Medications Combined list of outpatient medications from Department of Defense and Veterans Affairs facilities.Medications provided include 1) outpatient medications from the last 15 months, and 2) patient-reported medications. Medication Details Route Status Patient Instructions Prescription Expires Prescription Number Last Dispense Date Ordering Provider Order Date Order Qty Source MULTIVITAMI NS TAB TAKE THREE TABLETS BY MOUTH EVERY DAY ORAL ACTIVE JALEESA RENEE 2023 [facility] Allergies, Adverse Reactions, Alerts Combined list of allergies from Department of Defense and Veterans Affairs facilities. It does not include entries that were removed or entered in error. Substance Category Reaction Severity Reaction type Status Date Reported Comments Source SEASONAL ALLERGIES Propensity to adverse reaction (finding) Nasal discharge , Red eye MILD active 4 [facility] Immunizations Combined list of available immunizations from the Department of Defense and Veterans Affairs facilities. Immunization Series Date Given Administered By Site Reaction Lot Number CVX Code Drug Registered Dietitian Status Comments Source TDAP 2023 BEULAHCHRIS J LEFT DELTO ID [id number] complet ed Booster for Series, ADMINISTE [place], [facility] INFLUENZA, SPLIT VIRUS, QUADRIVALENT, PRESERVATIVE 2022 158 complet ed HISTORICA L INFORMATI ON - FROM OTHER REGISTRY, [facility] INFLUENZA, SPLIT VIRUS, QUADRIVALENT, PRESERVATIVE 2021 158 complet ed HISTORICA L INFORMATI ON - FROM OTHER REGISTRY, [facility] INFLUENZA, MDCK, QUADRIVALENT, PF 2018 171 complet ed HISTORICA L INFORMATI ON - FROM OTHER REGISTRY, [facility] influenza virus vaccine, split virus (incl. purified [...] dosage DoD vaccinia (smallpox) vaccine 0 2004 [id number] Wyeth-Ayersgisela (WAL) complet ed vaccinia (smallpox [...] L INFORMATI ON - FROM OTHER REGISTRY, [facility] POLIO, UNSPECIFIED FORMULATION 1984 89 complet ed HISTORICA L INFORMATI ON - FROM OTHER REGISTRY, [facility] Results Combined list of recent chemistry, hematology [...] May 18, 2024 11:34 AM Reporting Lab: [facility] [phone] Performing Lab: [facility] [address] [place] [facility] LIVER FUNCTION TESTS ALKALINE PHOSPHATAS E [ENZYMATIC ACTIVITY/V OLUME] IN SERUM OR PLASMA 58 U/L 40 - 150 08/14 Specimen Type: PLASMA No comment entered. Ordering Provider: JALEESA RENEE Report Released Date/Time: May 18, 2024 11:34 AM Reporting Lab: [facility] [address] Performing Lab: [facility] [address] [place] [facility] LIVER FUNCTION TESTS ALANINE AMINOTRANS FERASE [ENZYMATIC ACTIVITY/V OLUME] IN SERUM OR PLASMA 47 U/L <44 - 44 08/14 H Specimen Type: PLASMA No comment entered. Ordering Provider: JALEESA RENEE Report Released Date/Time: May 18, 2024 11:34 AM Reporting Lab: [facility] [address] Performing Lab: [facility] [address] [place] [facility] LIVER FUNCTION TESTS ASPARTATE AMINOTRANS FERASE [ENZYMATIC ACTIVITY/V OLUME] IN SERUM OR PLASMA 30 U/L 11 - 08/14 Specimen Type: PLASMA No comment entered. Ordering Provider: JALEESA RENEE Report Released Date/Time: May 18, 2024 11:34 AM Reporting Lab: [facility] [address] Performing Lab: [facility] [address] [place] [facility] LIVER FUNCTION TESTS GAMMA GLUTAMYL TRANSFERAS E [ENZYMATIC ACTIVITY/V OLUME] IN SERUM OR PLASMA 87 U/L <54 - 54 08/14 H Specimen Type: PLASMA No comment entered. Ordering Provider: JALEESA RENEE Report Released Date/Time: May 18, 2024 11:34 AM Reporting Lab: [facility] [phone] Performing Lab: [facility] [address] [facility] IS [facility] LIVER FUNCTION TESTS BILIRUBIN. DIRECT [MASS/VOLU ME] IN SERUM OR PLASMA 0.4 mg/dL <0.5 - 0.5 08/14 Specimen Type: PLASMA No comment entered. Ordering Provider: JALEESA RENEE Report Released Date/Time: May 18, 2024 11:34 AM Reporting Lab: [facility] [address] Performing Lab: [facility] [address] [facility] TSH W/REFLEX TO FREE T4 THYROTROPI N [UNITS/VOL UME] IN SERUM OR PLASMA 3.54 u[IU]/mL 0.35 - 4.94 05/18 Specimen Type: PLASMA No comment entered. Ordering Provider: JALEESA RENEE Report Released Date/Time: May 08, 2024 11:40 AM Reporting Lab: [facility] [address] Performing Lab: [facility] [address] [place] [facility] HIV AG/AB SCREEN HIV 1+2 AB+HIV1 P24 AG [PRESENCE] IN SERUM OR PLASMA BY IMMUNOASSA Y NEGATIVE 05/18 Specimen Type: SERUM No comment entered. Ordering Provider: JALEESA RENEE Report Released Date/Time: May 08, 2024 11:40 AM Reporting Lab: [facility] [address] Performing Lab: [facility] [address] [place] [facility] ANTI-HEP C(EIA) HEPATITIS C VIRUS AB [PRESENCE] IN SERUM NEGATIVE 05/18 Specimen Type: SERUM No comment entered. Ordering Provider: JALEESA RENEE Report Released Date/Time: May 08, 2024 11:40 AM Reporting Lab: [facility] [address] Performing Lab: [facility] [address] [place] [facility] LIPID PANEL,NO N-FASTIN G CHOLESTERO L [MASS/VOLU ME] IN SERUM OR PLASMA 213 mg/dL <199 - 199 05/18 H Specimen Type: PLASMA No comment entered. Ordering Provider: JALEESA RENEE Report Released Date/Time: May 08, 2024 11:40 AM Reporting Lab: [facility] [address] Performing Lab: [facility] [address] [place] [facility] LIPID PANEL,NO N-FASTIN G CHOLESTERO L IN HDL [MASS/VOLU ME] IN SERUM OR PLASMA 50 mg/dL 40 05/18 Specimen Type: PLASMA No comment entered. Ordering Provider: JALEESA RENEE Report Released Date/Time: May 08, 2024 11:40 AM Reporting Lab: [facility] [address] Performing Lab: [facility] [address] [place] [facility] LIPID PANEL,NO N-FASTIN G CHOLESTERO L IN LDL [MASS/VOLU ME] IN SERUM OR PLASMA BY CALCULATIO N 137 mg/dL <99 - 99 05/18 H Specimen Type: PLASMA No comment entered. Ordering Provider: JALEESA RENEE Report Released Date/Time: May 08, 2024 11:40 AM Reporting Lab: [facility] [address] Performing Lab: [facility] [address] [place] [facility] LIPID PANEL,NO N-FASTIN G CHOLESTERO L IN VLDL [MASS/VOLU ME] IN SERUM OR PLASMA BY CALCULATIO N 26 mg/dL <29 - 29 05/18 Specimen Type: PLASMA No comment entered. Ordering Provider: JALEESA RENEE Report Released Date/Time: May 08, 2024 11:40 AM Reporting Lab: [facility] [address] Performing Lab: [facility] [address] [place] [facility] LIPID PANEL,NO N-FASTIN G CHOLESTERO L NON HDL [MASS/VOLU ME] IN SERUM OR PLASMA 163 mg/dL <129 - 129 05/18 H Specimen Type: PLASMA No comment entered. Ordering Provider: JALEESA RENEE Report Released Date/Time: May 08, 2024 11:40 AM Reporting Lab: [facility] [address] Performing Lab: [facility] [address] [place] [facility] LIPID PANEL,NO N-FASTIN G TRIGLYCERI DE [MASS/VOLU ME] IN SERUM OR PLASMA 130 mg/dL <149 - 149 05/18 Specimen Type: PLASMA No comment entered. Ordering Provider: JALEESA RENEE Report Released Date/Time: May 08, 2024 11:40 AM Reporting Lab: [facility] [address] Performing Lab: [facility] [address] [place] [facility] COMPREHE NSIVE METABOLI C PANEL+MG CREATININE [MASS/VOLU ME] IN SERUM OR PLASMA 1.0 mg/dL 0.7 - 1.2 05/18 Specimen Type: PLASMA No comment entered. Ordering Provider: JALEESA RENEE Report Released Date/Time: May 08, 2024 11:40 AM Reporting Lab: [facility] [address] Performing Lab: [facility] [address] [place] [facility] COMPREHE NSIVE METABOLI C PANEL+MG UREA NITROGEN [MASS/VOLU ME] IN SERUM OR PLASMA 13 mg/dL 8 - 26 05/18 Specimen Type: PLASMA No comment entered. Ordering Provider: JALEESA RENEE Report Released Date/Time: May 08, 2024 11:40 AM Reporting Lab: [facility] [address] Performing Lab: [facility] [address] [place] [facility] COMPREHE NSIVE METABOLI C PANEL+MG GLUCOSE [MASS/VOLU ME] IN SERUM OR PLASMA 92 mg/dL 70 - 100 05/18 Specimen Type: PLASMA No comment entered. Ordering Provider: JALEESA RENEE Report Released Date/Time: May 08, 2024 11:40 AM Reporting Lab: [facility] [address] Performing Lab: [facility] [address] [facility] COMPREHE NSIVE METABOLI C PANEL+MG SODIUM [MOLES/VOL UME] IN SERUM OR PLASMA 139 mmol/L 136 - 145 05/18 Specimen Type: PLASMA No comment entered. Ordering Provider: JALEESA RENEE Report Released Date/Time: May 08, 2024 11:40 AM Reporting Lab: [facility] [address] Performing Lab: [facility] [address] [place] [facility] COMPREHE NSIVE METABOLI C PANEL+MG POTASSIUM [MOLES/VOL UME] IN SERUM OR PLASMA 4.5 mmol/L 3.5 - 5.1 05/18 Specimen Type: PLASMA No comment entered. Ordering Provider: JALEESA RENEE Report Released Date/Time: May 08, 2024 11:40 AM Reporting Lab: [facility] [address] Performing Lab: [facility] [address] [place] [facility] COMPREHE NSIVE METABOLI C PANEL+MG CHLORIDE [MOLES/VOL UME] IN SERUM OR PLASMA 107 mmol/L 98 - 107 05/18 Specimen Type: PLASMA No comment entered. Ordering Provider: JALEESA RENEE Report Released Date/Time: May 08, 2024 11:40 AM Reporting Lab: [facility] [address] Performing Lab: [facility] [address] [place] [facility] COMPREHE NSIVE METABOLI C PANEL+MG CARBON DIOXIDE, TOTAL [MOLES/VOL UME] IN SERUM OR PLASMA 26 mmol/L 22 - 29 05/18 Specimen Type: PLASMA No comment entered. Ordering Provider: JALEESA RENEE Report Released Date/Time: May 08, 2024 11:40 AM Reporting Lab: [facility] [address] Performing Lab: [facility] [address] [place] [facility] COMPREHE NSIVE METABOLI C PANEL+MG CALCIUM [MASS/VOLU ME] IN SERUM OR PLASMA 9.6 mg/dL 8.4 - 10.2 05/18 Specimen Type: PLASMA No comment entered. Ordering Provider: JALEESA RENEE Report Released Date/Time: May 08, 2024 11:40 AM Reporting Lab: [facility] [address] Performing Lab: [facility] [address] [place] [facility] COMPREHE NSIVE METABOLI C PANEL+MG PROTEIN [MASS/VOLU ME] IN SERUM OR PLASMA 7.5 g/dL 6.4 - 8.3 05/18 Specimen Type: PLASMA No comment entered. Ordering Provider: JALEESA RENEE Report Released Date/Time: May 08, 2024 11:40 AM Reporting Lab: [facility] [address] Performing Lab: [facility] [address] [place] [facility] COMPREHE NSIVE METABOLI C PANEL+MG ALBUMIN [MASS/VOLU ME] IN SERUM OR PLASMA 4.8 g/dL 3.5 - 5.0 05/18 Specimen Type: PLASMA No comment entered. Ordering Provider: JALEESA RENEE Report Released Date/Time: May 08, 2024 11:40 AM Reporting Lab: [facility] [address] Performing Lab: [facility] [address] [place] [facility] COMPREHE NSIVE METABOLI C PANEL+MG BILIRUBIN. TOTAL [MASS/VOLU ME] IN SERUM OR PLASMA 1.3 mg/dL 0.2 - 1.2 05/18 H Specimen Type: PLASMA No comment entered. Ordering Provider: JALEESA RENEE Report Released Date/Time: May 08, 2024 11:40 AM Reporting Lab: [facility] [address] Performing Lab: [facility] [address] [facility] COMPREHE NSIVE METABOLI C PANEL+MG MAGNESIUM [MASS/VOLU ME] IN SERUM OR PLASMA 2.2 mg/dL 1.6 - 2.6 05/18 Specimen Type: PLASMA No comment entered. Ordering Provider: JALEESA RENEE Report Released Date/Time: May 08, 2024 11:40 AM Reporting Lab: [facility] [address] Performing Lab: [facility] [address] [facility] COMPREHE NSIVE METABOLI C PANEL+MG ANION GAP IN SERUM OR PLASMA 6 mmol/L 5 - 15 05/18 Specimen Type: PLASMA No comment entered. Ordering Provider: JALEESA RENEE Report Released Date/Time: May 08, 2024 11:40 AM Reporting Lab: [facility] [address] Performing Lab: [facility] [address] [facility] COMPREHE NSIVE METABOLI C PANEL+MG ALKALINE PHOSPHATAS E [ENZYMATIC ACTIVITY/V OLUME] IN SERUM OR PLASMA 67 U/L 40 - 150 05/18 Specimen Type: PLASMA No comment entered. Ordering Provider: JALEESA RENEE Report Released Date/Time: May 08, 2024 11:40 AM Reporting Lab: [facility] [address] Performing Lab: [facility] [address] [facility] COMPREHE NSIVE METABOLI C PANEL+MG ALANINE AMINOTRANS FERASE [ENZYMATIC ACTIVITY/V OLUME] IN SERUM OR PLASMA 65 U/L <44 - 44 05/18 H Specimen Type: PLASMA No comment entered. Ordering Provider: JALEESA RENEE Report Released Date/Time: May 08, 2024 11:40 AM Reporting Lab: [facility] [address] Performing Lab: [facility] [address] [place] [facility] COMPREHE NSIVE METABOLI C PANEL+MG ASPARTATE AMINOTRANS FERASE [ENZYMATIC ACTIVITY/V OLUME] IN SERUM OR PLASMA 42 U/L 11 - 34 05/18 H Specimen Type: PLASMA No comment entered. Ordering Provider: JALEESA RENEE Report Released Date/Time: May 08, 2024 11:40 AM Reporting Lab: [facility] [address] Performing Lab: [facility] [address] [place] [facility] COMPREHE NSIVE METABOLI C PANEL+MG GLOMERULAR FILTRATION RATE/1.73 SQ M.PREDICTE D [VOLUME RATE/AREA] IN SERUM, PLASMA OR BLOOD BY CREATININE -BASED FORMULA (CKD-EPI 2020) >90 60 05/18 Specimen Type: PLASMA No comment entered. Ordering Provider: JALEESA RENEE Report Released Date/Time: May 08, 2024 11:40 AM Reporting Lab: [facility] [address] Performing Lab: [facility] [address] [facility] COMPREHE NSIVE METABOLI C PANEL+MG BILIRUBIN. DIRECT [MASS/VOLU ME] IN SERUM OR PLASMA 0.4 mg/dL <0.5 - 0.5 05/18 Specimen Type: PLASMA No comment entered. Ordering Provider: JALEESA RENEE Report Released Date/Time: May 08, 2024 11:40 AM Reporting Lab: [facility] [address] Performing Lab: [facility] [address] [place] [facility] HEMOGLOB IN A1C HEMOGLOBIN A1C/HEMOGL OBIN.TOTAL IN BLOOD 5.2 4.0 - 6.0 05/18 Specimen Type: BLOOD Comment: Values obtained from A1C measurement s can vary. For typical A1C assays, a reported value of 7.0 could actually be between 6.7 and 7.3 if measured by a reference method. A reported value of 9.0 could actually be between 8.7 and 9.3. Ref: [email or web address] Pdata.asp Ordering Provider: JALEESA RENEE Report Released Date/Time: May 08, 2024 11:40 AM Reporting Lab: [facility] [address] Performing Lab: [facility] [address] [place] [facility] TESTOSTE ARIADNE MUNOZO NE [MASS/VOLU ME] IN SERUM OR PLASMA 355 ng/dL 221 - 870 05/18 Specimen Type: SERUM No comment entered. Ordering Provider: JALEESA RENEE Report Released Date/Time: May 08, 2024 11:43 AM Reporting Lab: [facility] [address] Performing Lab: [facility] [address] [facility] Vital Signs Combined list of inpatient and outpatient Vital Signs from Department of Defense and Veterans Affairs, ranging from 12 months to all on record, depending upon the facility. Vital Sign Value Date Comments Source SYSTOLIC BLOOD PRESSURE 140 05/08/2024 11:03:52 [facility] DIASTOLIC BLOOD PRESSURE 99 05/08/2024 11:03:52 [facility] PULSE OXIMETRY 95 05/08/2024 11:03:52 [facility] WEIGHT 290 05/08/2024 11:03:52 [facility] BMI 44 kg/m2 05/08/2024 11:03:52 [facility] PAIN 0 05/08/2024 11:03:52 [facility] HEIGHT 68 05/08/2024 11:03:52 [facility] TEMPERATURE 98.5 05/08/2024 11:03:52 [facility] PULSE 72 05/08/2024 11:03:52 [facility] RESPIRATION 12 05/08/2024 11:03:52 [facility] Encounters Combined list of: 1) Encounters from Department of Veterans Affairs facilities going backup to the last 18 months, not all [place] inpatient encounters are included; 2) Encounters from the Department of Defense facilities going backup to 280 months. Location Location Details Encounter Type Encounter Number Reason For Visit Attending Provider ADM Date DC Date Status Disposition Source [facility] OFFICE O/P EST MOD 30 MIN [id number] Diagnos is: ICD-10- CM Z00.00 Encntr for general adult medical exam w/o abnorma l finding s JALEESA RENEE 05/08 [facility] Outpatient Encounter [id number] CARLYN SALAS 05/09 [facility] PT EDUCATION NOC GROUP [id number] Diagnos is: ICD-10- CM G47.33 Obstruc tive sleep apnea (adult) ([facility]) ASHLEY CHAVIS 05/25 [facility] Outpatient Encounter [id number] SUNIL LOPEZ 06/15 [facility] [place] [facility] Outpatient Encounter [id number] Diagnos is: ICD-10- CM Z77.29 Contact with and exposur e to other hazardo us substan silvina CARLYN SALAS 06/18 [facility] SNELLIN [facility] IS [facility] Outpatient Encounter [id number] 08/14 [facility] Procedures Combined list of: 1) Procedures from Department of Veterans Affairs facilities going back up to thelast 18 months, not all [place] non-surgical procedures are included; 2) All procedures from the Department of Defense facilities. Procedure Procedure Type Code Date Perfomer Comments Sour e UREA BREATH TEST, C-14 (ISOTOPIC); ANALYSIS 08/26/19 07 [facility] INDIVIDUAL PSYCHOTHERAPY, INSIGHT ORIENTED, BEHAVIOR MODIFYING AND/OR SUPPORTIVE, IN AN OFFICE OR OUTPATIENT FACILITY, APPROXIMATELY 20 TO 30 MINUTES [id number] WITH THE PATIENT 08/25/19 07 [facility] UREA BREATH TEST, C-14 (ISOTOPIC); ANALYSIS 08/24/19 07 [facility] UREA BREATH TEST, C-14 (ISOTOPIC); ANALYSIS 08/23/19 07 [facility] UREA BREATH TEST, C-14 (ISOTOPIC); ANALYSIS 08/22/19 07 [facility] UREA BREATH TEST, C-14 (ISOTOPIC); ANALYSIS 08/21/19 07 [facility] UREA BREATH TEST, C-14 (ISOTOPIC); ANALYSIS 08/20/19 07 [facility] UREA BREATH TEST, C-14 (ISOTOPIC); ANALYSIS 08/19/19 07 [facility] INDIVIDUAL PSYCHOTHERAPY, INSIGHT ORIENTED, BEHAVIOR MODIFYING AND/OR SUPPORTIVE, IN AN OFFICE OR OUTPATIENT FACILITY, APPROXIMATELY 20 TO 30 MINUTES [id number] WITH THE PATIENT 08/18/19 07 [facility] UREA BREATH TEST, C-14 (ISOTOPIC); ANALYSIS 08/17/19 [facility] UREA BREATH TEST, C-14 (ISOTOPIC); ANALYSIS 08/16/19 07 [facility] GROUP PSYCHOTHERAPY (OTHER THAN OF A MULTIPLE-FAMILY GROUP) 08/15/19 07 [facility] UREA BREATH TEST, C-14 (ISOTOPIC); ANALYSIS 08/14/19 07 [facility] UREA BREATH TEST, C-14 (ISOTOPIC); ANALYSIS 08/13/19 07 [facility] PSYCHIATRIC EVALUATION OF HOSPITAL RECORDS, OTHER PSYCHIATRIC REPORTS, PSYCHOMETRIC AND/OR PROJECTIVE TESTS, AND OTHER ACCUMULATED DATA FOR MEDICALDIAGNOSTIC PURPOSES 08/12/19 07 [facility] MEDICAL NUTRITION THERAPY; GROUP (2 OR MORE INDIVIDUAL(S)), EACH 30 MINUTES 08/11/19 07 [facility] UREA BREATH TEST, C-14 (ISOTOPIC); ANALYSIS 08/11/19 07 [facility] UREA BREATH TEST, C-14 (ISOTOPIC); ANALYSIS 08/10/19 07 [facility] PSYCHIATRIC EVALUATION OF HOSPITAL RECORDS, OTHER PSYCHIATRIC REPORTS, PSYCHOMETRIC AND/OR PROJECTIVE TESTS, AND OTHER ACCUMULATED DATA FOR MEDICALDIAGNOSTIC PURPOSES 08/09/19 07 [facility] UREA BREATH TEST, C-14 (ISOTOPIC); ANALYSIS 08/08/19 07 [facility] PRESCRIPTION DRUG, BRAND NAME 05/13/20 03 [facility] PHARMACOLOGIC MANAGEMENT, INCLUDING PRESCRIPTION, USE, AND REVIEW OF MEDICATION WITH NO MORE THAN MINIMAL MEDICAL PSYCHOTHERAPY 03/25/20 03 [facility] Isotop Scans Urea Breath Test, C-14 Analysis Isotop Scans Urea Breath Test, C-14 Analysis [id number] 08/26/19 07 SAVANNA MONTEIRO [facility] Psychiatric Therapy Group (Interview) Psychiatric Therapy Group (Interview) [id number] 08/26/19 07 SAVANNA MONTEIRO [facility] Psychiatric Evaluation Review of Records and Reports Psychiatric Evaluation Review of Records and Reports [id number] 08/26/19 07 SAVANNA MONTEIRO [facility] Psychiatric Therapy Individual Approximately 20-30 Minutes Psychiatric Therapy Individual Approximately 20-30 Minutes [id number] 08/26/19 07 SAVANNA MONTEIRO [facility] Isotop Scans Urea Breath Test, C-14 Analysis Isotop Scans Urea Breath Test, C-14 Analysis [id number] 08/24/19 07 SAVANNA MONTEIRO [facility] Psychiatric Therapy Group (Interview) Psychiatric Therapy Group (Interview) [id number] 08/24/19 07 SAVANNA MONTEIRO [facility] Psychiatric Evaluation Review of Records and Reports Psychiatric Evaluation Review of Records and Reports [id number] 08/24/19 07 SAVANNA MONTEIRO [facility] Isotop Scans Urea Breath Test, C-14 Analysis Isotop Scans Urea Breath Test, C-14 Analysis [id number] 08/23/19 07 SAVANNA MONTEIRO [facility] Psychiatric Therapy Group (Interview) Psychiatric Therapy Group (Interview) 08/23/19 07 SAVANNA MONTEIRO [facility] Psychiatric Therapy Individual Approximately 20-30 Minutes Psychiatric Therapy Individual Approximately 20-30 Minutes [id number] 08/23/19 07 SAVANNA MONTEIRO [facility] Psychiatric Evaluation Review of Records and Reports Psychiatric Evaluation Review of Records and Reports 08/23/19 07 SAVANNA MONTEIRO [facility] Isotop Scans Urea Breath Test, C-14 Analysis Isotop Scans Urea Breath Test, C-14 Analysis [id number] 08/19/19 07 SAVANNA MONTEIRO [facility] Psychiatric Therapy Group (Interview) Psychiatric Therapy Group (Interview) 08/19/19 07 SAVANNA MONTEIRO [facility] Psychiatric Evaluation Review of Records and Reports Psychiatric Evaluation Review of Records and Reports 08/19/19 07 SAVANAN MONTEIRO [facility] Psychiatric Therapy Individual Approximately 20-30 Minutes Psychiatric Therapy Individual Approximately 20-30 Minutes [id number] 08/19/19 07 SAVANNA MONTEIRO [facility] Isotop Scans Urea Breath Test, C-14 Analysis Isotop Scans Urea Breath Test, C-14 Analysis [id number] 08/17/19 07 SAVANNA MONTEIRO [facility] Psychiatric Therapy Group (Interview) Psychiatric Therapy Group (Interview) 08/17/19 07 SAVANNA MONTEIRO [facility] Mental Health Awareness Coping Skills Group Counseling [facility] Psychiatric Evaluation Review of Records and Reports Psychiatric Evaluation Review of Records and Reports [id number] 08/17/19 07 SAVANNA MONTEIRO [facility] Isotop Scans Urea Breath Test, C-14 Analysis Isotop Scans Urea Breath Test, C-14 Analysis [id number] 08/16/19 07 SAVANNA MONTEIRO [facility] Psychiatric Therapy Group (Interview) Psychiatric Therapy Group (Interview) [id number] 08/16/19 07 SAVANNA MONTEIRO [facility] Terry's Window Grief Group Counseling [facility]D Psychiatric Therapy Individual Approximately 20-30 Minutes Psychiatric Therapy Individual Approximately 20-30 Minutes [id number] 08/16/19 07 SAVANNA MONTEIRO [facility] Psychiatric Evaluation Review of Records and Reports Psychiatric Evaluation Review of Records and Reports [id number] 08/16/19 07 SAVANNA MONTEIRO [facility] Psychiatric Therapy Group (Interview) Psychiatric Therapy Group (Interview) [id number] 08/15/19 07 SAVANNA MONTEIRO Commuity Effects of alcohol and the Family Group Counseling [facility] Psychiatric Therapy Individual Approximately 20-30 Minutes Psychiatric Therapy Individual Approximately 20-30 Minutes [id number] 08/15/19 07 SAVANNA MONTEIRO [facility] Psychiatric Evaluation Review of Records and Reports Psychiatric Evaluation Review of Records and Reports [id number] 08/15/19 07 SAVANNA MONTEIRO [facility] Isotop Scans Urea Breath Test, C-14 Analysis Isotop Scans Urea Breath Test, C-14 Analysis [id number] 08/15/19 07 KIRSTEN ALBERTO [facility] Psychiatric Therapy Group (Interview) Psychiatric Therapy Group (Interview) [id number] 08/15/19 07 KIRSTEN ALBERTO [facility] Isotop Scans Urea Breath Test, C-14 Analysis Isotop Scans Urea Breath Test, C-14 Analysis [id number] 08/11/19 07 SAVANNA MONTEIRO [facility] Psychiatric Therapy Group (Interview) Psychiatric Therapy Group (Interview) [id number] 08/11/19 07 SAVANNA MONTEIRO [employer] [facility] Social Workshop Spirituality Workshop Nutrition Community Group Session [facility] Psychiatric Evaluation Review of Records and Reports Psychiatric Evaluation Review of Records and Reports [id number] 08/11/19 07 SAVANNA MONTEIRO [facility] Isotop Scans Urea Breath Test, C-14 Analysis Isotop Scans Urea Breath Test, C-14 Analysis [id number] 08/10/19 07 SAVANNA MONTEIRO [facility] Psychiatric Therapy Group (Interview) Psychiatric Therapy Group (Interview) 08/10/19 07 SAVANNA MONTEIRO Denial Workshop, High Risk Workshop, Medical Aspects Workshop, Community Group sessions [facility] Psychiatric Evaluation Review of Records and Reports Psychiatric Evaluation Review of Records and Reports [id number] 08/10/19 07 SAVANNA MONTEIRO [facility] Isotop Scans Urea Breath Test, C-14 Analysis Isotop Scans Urea Breath Test, C-14 Analysis [id number] 08/09/19 07 SHI VILLANUEVA [facility] Psychiatric Therapy Group (Interview) Psychiatric Therapy Group (Interview) [id number] 08/09/19 07 SHI VILLANUEVA [facility] Psychiatric Evaluation Review of Records and Reports Psychiatric Evaluation Review of Records and Reports [id number] 08/09/19 07 SHI VILLANUEVA [facility] Social History Combined list of available smoking, tobacco, and other social history from [facility] Defense and [facility] facilities. Social History Type Response Date Comment [facility] e Tobacco smoking status [facility] VA-TOBACCO FORMER USER 05/08/2024 [facility] History of tobacco use [place]-TOBACCO QUIT 1 5 YRS OR MORE 05/08/2024 [facility] This section is an empty social history section. DoD
[2025-01-21 16:32] VITALS: BP 155/115; PULSE 78; RESP 20; TEMP 36.6; O2SAT 99; BMI 47.6
--- NOTE | 2025-01-21 16:58 | ED.CHESTPAIN ---
HPI - Chest Pain General Chief Complaint: Chest Pain Stated Complaint: Chest pain Time Seen by Provider: 01/21/25 16:30 History of Present Illness HPI narrative: This 39-year-old male comes in reporting a sudden onset of chest pain while driving. He was not doing anything exertional and was not under any kind of duress at the time. He states that the pain lasted for several minutes. He reports that he does have some generalized anxiety and the pain did trigger anxiety symptoms. He did not have any nausea, vomiting, lightheadedness, shortness of breath, or diaphoresis. He does not report any symptoms of exercise intolerance. He does not have any risk factors except for family history. He states that his dad has had heart attack but he was a long-time smoker. This patient had a checkup at the [facility] less than a year ago and everything looked okay at that time. Currently he is not having any symptoms. Related Data Home Medications ?Medication ?Instructions ?Recorded ?Confirmed No Known Home Medications 01/21/25 01/21/25 Allergies Allergy/AdvReac Type Severity Reaction Status Date / Time No Known Drug Allergies Allergy Verified 09/09/22 08:07 Review of Systems Status of ROS Reports: 10 or more systems reviewed and unremarkable except as noted in History and below Narrative Constitutional: No fevers, no weight gain or loss. Eyes: No discharge. No vision changes. HENT: No congestion, no sore throat, no ear pain. Cardiovascular: No palpitations. Respiratory: No shortness of breath, no wheezes, no cough. Gastrointestinal: No abdominal pain, no vomiting, no diarrhea. Genitourinary: No dysuria, no hematuria. Musculoskeletal: Normal range of motion. Skin: No rashes, no pruritis. Neurological: No dizziness, weakness, sensory change, speech change. Endo/Heme/Allergies: No bruising or bleeding. No polydipsia. Pysch: no suicidality, no insomnia. He does report occasions of anxiety symptoms and this chest pain certainly did trigger anxiety response. All other systems reviewed and are negative. PFSH PFS Social History Smoking Status: Never smoker Exam Narrative Exam Narrative: Constitutional: Well-developed, well-nourished, no acute distress. HEENT: Normocephalic, atraumatic. Neck: Normal range of motion. Nontender. Supple. Heart: Regular. No murmurs. Normal rate. Intact distal pulses. Lungs: Clear to auscultation. No chest discomfort. No wheezes, rhonchi, or rales. Abdomen: Normal bowel sounds. Nontender. No rebound tenderness. Genitalia: Deferred. Back: No midline tenderness. Normal range of motion. Extremities: Normal range of motion. No injury. Skin: Intact. No rash. Warm. No erythema or pallor. Neurologic: No altered sensation. No weakness. Alert and oriented. Psychiatric: No suicidality. No anxiety or depression. No insomnia. Nursing notes and vitals signs are reviewed. Const Vital Signs, click to edit/add: Vital Signs - 24 hr 01/21/25 16:32 01/21/25 17:10 Temperature 98 F Pulse Rate [Pulse Oximeter] 78 Respiratory Rate 20 14 Blood Pressure [Left Upper Arm] 155/115 H Pulse Oximetry 99 Oxygen Delivery Method Room Air Course Vital Signs Vital signs: Initial Vital Signs Temperature 98 F 01/21/25 16:32 Temperature Source Temporal Artery Scan 01/21/25 16:32 Pulse Rate 78 01/21/25 16:32 Respiratory Rate 20 01/21/25 16:32 Blood Pressure 155/115 H 01/21/25 16:32 Blood Pressure Mean 128 H 01/21/25 16:32 Blood Pressure Position Supine 01/21/25 16:32 Pulse Oximetry 99 01/21/25 16:32 Oxygen Delivery Method Room Air 01/21/25 16:32 Vital Signs Temperature 98 F 01/21/25 16:32 Pulse Rate 78 01/21/25 16:32 Respiratory Rate 20 01/21/25 16:32 Blood Pressure 155/115 H 01/21/25 16:32 Pulse Oximetry 99 01/21/25 16:32 Oxygen Delivery Method Room Air 01/21/25 16:32 Temperature 98 F 01/21/25 16:32 Pulse Rate 78 01/21/25 16:32 Respiratory Rate 14 01/21/25 17:10 Blood Pressure 155/115 H 01/21/25 16:32 Pulse Oximetry 99 01/21/25 16:32 Oxygen Delivery Method Room Air 01/21/25 16:32 MDM - Chest Pain MDM Narrative Medical decision making narrative: This patient comes in reporting a chest pain episode that is atypical. He does not have any other associated symptoms that are suspicious for heart or lung or great vessel disease. Currently he is not having any symptoms and additionally he has good exercise tolerance. He does have a family history risk factor but his father smoked for many decades. The patient himself does not smoke and does not have any other risk factors. EKG shows normal sinus rhythm and labs are acquired and returned with normal results including a normal troponin. He is okay to be discharged home and is reassured with these results. I did describe signs and symptoms that would indicate a need for return and re-evaluation. Lab Data Labs: Lab Results 01/21/25 01/21/25 Range/Units 16:57 17:05 WBC 4.59 (4.50-11.00) K/uL RBC 5.22 (4.30-5.90) m/uL Hgb 15.7 (13.5-17.5) gm/dL Hct 45.5 (37.0-53.0) % MCV 87 (80-100) fL MCH 30 (26-34) pg MCHC 35 (32-36) gm/dL RDW Coeff of Lucas 12.1 (11.5-15.5) % Plt Count 168 (140-440) K/uL Neut % (Auto) 57.7 (42.0-72.0) % Lymph % (Auto) 27.0 (20-44) % Granite % (Auto) 9.4 (0.0-11.0) % Eos % (Auto) 5.0 (0.0-7.0) % Baso % (Auto) 0.7 (0.0-3.0) % Neut # (Auto) 2.65 (1.7-7.0) K/uL Lymph # (Auto) 1.24 (0.90-2.90) K/uL Granite # (Auto) 0.40 (0.00-0.90) K/UL Eos # (Auto) 0.23 (0.00-0.50) K/uL Baso # (Auto) 0.03 (0.00-0.30) K/uL Abs Immat Gran (auto) 0.01 (0.00-0.30) K/uL Imm/Tot Granulo (auto) 0.2 % Sodium 137 (135-149) mmol/L Potassium 4.0 (3.6-5.1) mmol/L Chloride 101 (96-114) mmol/L Carbon Dioxide 28 (20-32) mmol/L Anion Gap 8 (7-15) mEq/L BUN 17 (5-24) mg/dL Creatinine 1.2 (0.5-1.5) mg/dL Estimated Creat Clear 73.84 Estimated GFR 78 ml/min Glucose 101 (60-115) mg/dL Calcium 9.3 (8.4-10.6) mg/dL POC Troponin I 0.02 (0.01-0.04) ng/ml ECG Data Attestation: I personally reviewed and interpreted this ECG as follows: Interpretation: Normal sinus rhythm. Rate is 84 beats per minute. There are no ST or T-wave abnormalities. Discharge Plan Discharge Clinical Impression: Atypical chest pain Patient Disposition: Home, Self-Care Condition: Stable Additional Instructions: Continue current plans. Follow up with MD return if symptoms are recurrent or worsening. Prescriptions: No Action No Known Home Medications Follow Up/Referrals: Scott Chery PA-C [Physician Customer Advocate, Family Practice] Stand Alone Forms: [employer] Info Instructions
[2025-01-21 17:10] VITALS: RESP 14
[2025-01-21 17:16] LABS: Hematocrit 45.5 % (37.0-53.0); Hemoglobin* 15.7 gm/dL (13.5-17.5); Immature Granulocytes Abs Auto 0.01 K/uL (0.00-0.30); Immature Granulocytes Pct Auto 0.2 %; Lymphocytes Absolute Auto 1.24 K/uL (0.90-2.90); Mean Corpuscular HGB Conc 35 gm/dL (32-36); Mean Corpuscular Hemoglobin 30 pg (26-34); Mean Corpuscular Volume 87 fL (80-100); RDW Coefficient of Variation % 12.1 % (11.5-15.5); Red Blood Count 5.22 m/uL (4.30-5.90); White Blood Count* 4.59 K/uL (4.50-11.00)
[2025-01-21 17:21] LABS: Slide Review Reflex No
[2025-01-21 17:23] LABS: Troponin, Point-of-Care* 0.02 ng/ml (0.01-0.04)
[2025-01-21 17:28] LABS: Chloride* 101 mmol/L (96-114); Sodium* 137 mmol/L (135-149)
[2025-01-21 17:29] LABS: Potassium* 4.0 mmol/L (3.6-5.1)
[2025-01-21 17:31] LABS: Blood Urea Nitrogen* 17 mg/dL (5-24); Creatinine* 1.2 mg/dL (0.5-1.5); Est. Creatinine Clearance* 73.84; Estimated Glomerular Filt Rate 78 ml/min
[2025-01-21 17:32] LABS: Anion Gap 8 mEq/L (7-15); Calcium* 9.3 mg/dL (8.4-10.6); Carbon Dioxide* 28 mmol/L (20-32); Glucose* 101 mg/dL (60-115)
== END 2025-01-21 17:50 | disposition home or self-care (01) ==
PROVIDERS: Emergency Provider Emergency Medicine Emergency Medical Services
DX: R07.89 Other chest pain (principal)
CPT/HCPCS: 36415; 80048; 84484; 85025; 93005; 99284